=== PATIENT | male | born 1985 | race Caucasian/White ===

== ENCOUNTER 2016-05-26 08:41 | Emergency (ER) | payer SELFPAY ==
[~2016-05-26] VITALS: Ht 185.4 cm; Wt 81.8 kg
[2016-05-26 08:44] VITALS: BP 157/73; PULSE 80; TEMP 97.6
[2016-05-26] MEDS ORDERED: VITAMIN C500 MG PO (08:52)
[2016-05-26] MEDS ORDERED: VOLTAREN 75 DR75 MG PO (21:33)
[2016-05-27] MEDS ORDERED: ZENZEDI10 MG PO (23:39)
[2016-05-27] MEDS ORDERED: VALIUM 10MG10 MG/TAB PO (23:43)
== END 2016-05-26 12:12 | disposition home or self-care (01) ==
LOC: COL.ER 08:41
DX: S09.90XA Unspecified injury of head, initial encounter (principal); S00.03XA Contusion of scalp, initial encounter; M54.5 Low back pain; G89.29 Other chronic pain; Z95.0 Presence of cardiac pacemaker; I49.5 Sick sinus syndrome; W01.198A Fall on same level from slipping, tripping and stumbling with subsequent striking against other object, initial encounter; Y92.69 Other specified industrial and construction area as the place of occurrence of the external cause
CPT/HCPCS: J2360

== ENCOUNTER 2016-05-26 21:13 | Emergency (ER) | payer SELFPAY ==
[~2016-05-26] VITALS: Ht 182.9 cm; Wt 90.9 kg
[~2016-05-26 21:13] MED LIST: VITAMIN C500 MG PO
[2016-05-26 21:14] VITALS: TEMP 98
[2016-05-26] MEDS ORDERED: VOLTAREN 75 DR75 MG PO (21:33)
[2016-05-26 22:05] VITALS: BP 128/89; PULSE 76
[2016-05-27] MEDS ORDERED: ZENZEDI10 MG PO (23:39)
[2016-05-27] MEDS ORDERED: VALIUM 10MG10 MG/TAB PO (23:43)
== END 2016-05-26 22:25 | disposition home or self-care (01) ==
LOC: COL.ER 21:13
DX: M54.5 Low back pain (principal)
CPT/HCPCS: J1885

== ENCOUNTER 2016-05-27 23:38 | Emergency (ER) | payer SELFPAY ==
[~2016-05-27] VITALS: Ht 185.4 cm; Wt 81.8 kg
[~2016-05-27 23:38] MED LIST changes: +VOLTAREN 75 DR75 MG PO
[2016-05-27] MEDS ORDERED: ZENZEDI10 MG PO (23:39)
[2016-05-27 23:40] VITALS: TEMP 97.7
[2016-05-27] MEDS ORDERED: VALIUM 10MG10 MG/TAB PO (23:43)
[2016-05-27 23:54] LABS: BASO # 0.1 (0.0-0.2); BASO % 0.7 % (0.0-2.0); EOS # 0.2 (0.0-0.7); EOS % 1.8 % (0-4.0); GRAN # 5.3 (1.4-6.5); GRAN % 60.4 % (42.2-75.2); HEMATOCRIT 43.7 % (42.0-52.0); HEMOGLOBIN 14.9 g/dl (13.5-18.0); LYMPH # 2.8 (1.2-3.4); LYMPH % 32.1 % (20.0-51.0); MEAN CELL VOLUME 87 fl (80.0-100.0); MEAN CORPUSCULAR HEMOGLOBIN 30 pg (27.0-31.0); MEAN CORPUSCULAR HGB CONC 34 g/dl (33.0-37.0); MEAN PLATELET VOLUME 9.3 fl (7.4-10.4); MONO # 0.4 (0.1-0.6); MONO % 4.8 % (1.7-9.3); PLATELET COUNT 187 K/mm3 (130-400); RED BLOOD COUNT 5.05 M/mm3 (4.20-5.60); REDCELL DISTRIBUTION WIDTH-CV 14.7 % (11.5-14.5); WHITE BLOOD COUNT 8.8 K/mm3 (4.8-10.8)
[2016-05-28 00:03] LABS: CALCIUM 9.2 mg/dL (8.4-10.2); CREATININE, serum 0.81 mg/dL (0.66-1.25); POTASSIUM 4.1 mmol/L (3.4-5.0)
[2016-05-28 00:15] VITALS: BP 116/69; PULSE 83
[2016-05-28 00:21] LABS: ARTERIAL BLOOD GAS PO2 89.6 mmHg (80-100); ARTERIAL BLOOD GAS pH 7.35 (7.35-7.45)
[2016-05-28 00:22] LABS: ARTERIAL BLD GAS TCO2 CT 24.3; ARTERIAL BLOOD GAS BASE EXCESS -2.5 (-2-2); OXYHEMOGLOBIN 93.7 %
[2016-05-28 00:23] LABS: ARTERIAL BLOOD GAS PO2T 89.6 (80-100); ATS? NO
== END 2016-05-28 00:25 ==
LOC: COL.ER 23:38
PROVIDERS: Physician Assistant
DX: F10.120 Alcohol abuse with intoxication, uncomplicated (principal); Y90.6 Blood alcohol level of 120-199 mg/100 ml; T40.2X1A Poisoning by other opioids, accidental (unintentional), initial encounter; R41.82 Altered mental status, unspecified

== ENCOUNTER 2016-06-04 16:19 | Emergency (ER) | payer SELFPAY ==
[~2016-06-04] VITALS: Ht 185.4 cm; Wt 81.8 kg
[~2016-06-04 16:19] MED LIST changes: +VALIUM 10MG10 MG/TAB PO; +ZENZEDI10 MG PO
[2016-06-04 16:21] VITALS: TEMP 99
[2016-06-04 16:47] LABS: BASO % 0.8 % (0.0-2.0); EOS # 0.1 (0.0-0.7); GRAN # 2.3 (1.4-6.5); GRAN % 47.9 % (42.2-75.2); HEMATOCRIT 44.1 % (42.0-52.0); HEMOGLOBIN 15.3 g/dl (13.5-18.0); LYMPH # 1.9 (1.2-3.4); LYMPH % 38.7 % (20.0-51.0); MEAN CELL VOLUME 85 fl (80.0-100.0); MEAN CORPUSCULAR HEMOGLOBIN 30 pg (27.0-31.0); MEAN CORPUSCULAR HGB CONC 35 g/dl (33.0-37.0); MONO # 0.5 (0.1-0.6); MONO % 11.2 % (1.7-9.3); PLATELET COUNT 202 K/mm3 (130-400); RED BLOOD COUNT 5.17 M/mm3 (4.20-5.60); REDCELL DISTRIBUTION WIDTH-CV 14.7 % (11.5-14.5); WHITE BLOOD COUNT 4.8 K/mm3 (4.8-10.8)
[2016-06-04 17:12] LABS: ALBUMIN 4.4 gm/dL (3.5-5.0); BILIRUBIN,TOTAL 0.5 mg/dL (0.0-1.0); CALCIUM 9.3 mg/dL (8.4-10.2); CREATININE, serum 0.79 mg/dL (0.66-1.25); POTASSIUM 4.1 mmol/L (3.4-5.0)
[2016-06-04 17:46] VITALS: BP 135/92; PULSE 81
== END 2016-06-04 17:44 | disposition home or self-care (01) ==
LOC: COL.ER 16:19
PROVIDERS: Emergency Medicine
DX: R55 Syncope and collapse (principal); S06.9X9A Unspecified intracranial injury with loss of consciousness of unspecified duration, initial encounter; S00.81XA Abrasion of other part of head, initial encounter; S50.02XA Contusion of left elbow, initial encounter; W18.30XA Fall on same level, unspecified, initial encounter; Y92.143 Cell of prison as the place of occurrence of the external cause

== ENCOUNTER 2016-06-16 19:18 | Emergency (ER) | payer SELFPAY ==
[~2016-06-16] VITALS: Ht 185.4 cm; Wt 81.8 kg
[2016-06-16 19:48] LABS: BASO # 0.1 (0.0-0.2); BASO % 0.6 % (0.0-2.0); EOS % 0.3 % (0-4.0); GRAN # 7.1 (1.4-6.5); GRAN % 60.1 % (42.2-75.2); HEMATOCRIT 42.2 % (42.0-52.0); HEMOGLOBIN 14.5 g/dl (13.5-18.0); LYMPH # 3.6 (1.2-3.4); LYMPH % 30.2 % (20.0-51.0); MEAN CELL VOLUME 86 fl (80.0-100.0); MEAN CORPUSCULAR HEMOGLOBIN 30 pg (27.0-31.0); MEAN CORPUSCULAR HGB CONC 34 g/dl (33.0-37.0); MEAN PLATELET VOLUME 9.4 fl (7.4-10.4); MONO % 8.5 % (1.7-9.3); PLATELET COUNT 187 K/mm3 (130-400); RED BLOOD COUNT 4.89 M/mm3 (4.20-5.60); REDCELL DISTRIBUTION WIDTH-CV 14.7 % (11.5-14.5); WHITE BLOOD COUNT 11.8 K/mm3 (4.8-10.8)
[2016-06-16 20:09] LABS: ADJUSTED CALCIUM 9.2 mg/dL (8.4-10.2); ALBUMIN 4.3 gm/dL (3.5-5.0); BILIRUBIN,TOTAL 0.7 mg/dL (0.0-1.0); CALCIUM 9.4 mg/dL (8.4-10.2); CREATININE, serum 1.17 mg/dL (0.66-1.25); POTASSIUM 3.7 mmol/L (3.4-5.0)
[2016-06-16 21:48] LABS: AMPHETAMINE URINE POSITIVE; BARBITURATES URINE NEGATIVE; BENZODIAZEPINES URINE NEGATIVE; BUPRENORPHINE URINE NEGATIVE; METHADONE URINE NEGATIVE; OPIATES URINE POSITIVE; OXYCODONE URINE NEGATIVE; PHENCYCLIDINE URINE NEGATIVE; PROPOXYPHENE URINE NEGATIVE; THC CANNABINOIDS URINE NEGATIVE
[2016-06-16 22:31] VITALS: BP 114/55; PULSE 102
== END 2016-06-16 22:55 | disposition short-term general hospital (02) ==
LOC: COL.ER 19:18
PROVIDERS: Family Medicine
DX: S56.522A Laceration of other extensor muscle, fascia and tendon at forearm level, left arm, initial encounter (principal); Z53.09 Procedure and treatment not carried out because of other contraindication; W26.0XXA Contact with knife, initial encounter; Z95.0 Presence of cardiac pacemaker; Y90.6 Blood alcohol level of 120-199 mg/100 ml; Y92.833 Campsite as the place of occurrence of the external cause; F98.8 Other specified behavioral and emotional disorders with onset usually occurring in childhood and adolescence; F43.10 Post-traumatic stress disorder, unspecified; I49.5 Sick sinus syndrome; F17.210 Nicotine dependence, cigarettes, uncomplicated
CPT/HCPCS: J0690; J1100; J1885; J2270; J2405; J2550; J2704; J3010; J7120

== ENCOUNTER 2016-09-04 21:32 | Emergency (ER) | payer OTHER ==
[~2016-09-04] VITALS: Ht 185.4 cm; Wt 81.8 kg
[2016-09-04 21:35] VITALS: BP 129/85; TEMP 98.5
[2016-09-04] MEDS ORDERED: VALIUM 10MG10 MG/TAB PO (21:39)
[2016-09-04] MEDS ORDERED: CEPHALEXIN500 M1 PO (22:06)
[2016-09-04 22:45] VITALS: PULSE 82
== END 2016-09-04 22:45 | disposition home or self-care (01) ==
LOC: COL.ER 21:32
DX: S61.441A Puncture wound with foreign body of right hand, initial encounter (principal); W22.8XXA Striking against or struck by other objects, initial encounter; W18.30XA Fall on same level, unspecified, initial encounter; Y92.149 Unspecified place in prison as the place of occurrence of the external cause

== ENCOUNTER → 2016-09-08 | Outpatient (REF) ==
[~2016-09-08] MED LIST changes: +CEPHALEXIN500 M1 PO
== END ==
LOC: ZLAB.WCH 08:41
DX: Z01.89 Encounter for other specified special examinations (principal)

== ENCOUNTER → 2016-09-12 | Outpatient (REF) | LOC: ZLAB.WCH 18:12 | DX: Z01.89 Encounter for other specified special examinations (principal) ==

== ENCOUNTER → 2016-09-19 | Outpatient (REF) | LOC: ZLAB.WCH 18:51 | DX: Z01.89 Encounter for other specified special examinations (principal) ==

== ENCOUNTER → 2016-09-23 | Outpatient (REF) | LOC: ZLAB.WCH 18:22 | DX: Z01.89 Encounter for other specified special examinations (principal) ==